=== PATIENT | male | born 1935 | race Caucasian/White ===

== ENCOUNTER 2024-04-22 18:30 | Inpatient (IN) | payer MEDICARE, OTHER ==
[~2024-04-22] VITALS: Ht 172.7 cm; Wt 62.1 kg
[2024-04-22 19:19] LABS: BASOPHILS # (AUTO) 0.1 K/UL (0.0-0.2); BASOPHILS % (AUTO) 0.5 % (0.0-2.0); EOSINOPHILS % (AUTO) 0.2 % (0.0-7.0); HEMATOCRIT 29.2 % (36.7-47.1); HEMOGLOBIN 9.3 g/dL (12.5-16.3); LYMPHOCYTES # (AUTO) 1.3 K/uL (0.8-4.8); MEAN CORPUSCULAR HEMOGLOBIN 28.3 uug (23.8-33.4); MEAN CORPUSCULAR HGB CONC 32 g/dL (32.5-36.3); MEAN CORPUSCULAR VOLUME 88.7 fL (73.0-96.2); MONOCYTES # (AUTO) 0.7 K/uL (0.1-1.30); MONOCYTES % (AUTO) 6.1 % (0.0-11.0); NEUTROPHILS # (AUTO) 9.1 K/uL (1.8-8.9); NEUTROPHILS % (AUTO) 81.2 % (38.5-71.5); PLATELET COUNT (AUTO) 200 K/uL (152-348); RED BLOOD CELL COUNT(AUTO) 3.29 MIL/uL (4.06-5.63); RED CELL DISTRIBUTION WIDTH 13.6 % (12.1-16.2); WHITE BLOOD COUNT (AUTO) 11.2 K/uL (3.6-10.2)
[2024-04-22 19:30] LABS: DIFFERENTIAL COMMENT 1
[2024-04-22 19:33] LABS: CALCIUM 9.1 mg/dL (8.5-10.1); CARBON DIOXIDE 28 mmol/L (21-32); CHLORIDE 110 mmol/L (98-107); CREATININE 1.5 mg/dL (0.6-1.3); GLUCOSE 96 mg/dL (74-106); POTASSIUM 4.6 mmol/L (3.5-5.1); SODIUM SERUM 145 mmol/L (136-145); UREA NITROGEN, BLOOD 59 mg/dL (7-18)
[2024-04-22 19:51] LABS: ALANINE AMINOTRANSFERASE 13 U/L (16-63); ALBUMIN 2.7 g/dL (3.4-5.0); ALKALINE PHOSPHATASE 110 U/L (50-136); ASPARTATE AMINOTRANSFERASE 12 U/L (15-37); BILIRUBIN,TOTAL 0.5 mg/dL (0.2-1.0); NT-PRO BNP 510 pg/mL (0-125); TOTAL PROTEIN, SERUM 6.8 g/dL (6.4-8.2)
[2024-04-22 20:25] LABS: *BILIRUBIN,URIN NEGATIVE (NEGATIVE); *BLOOD, URINE 3+ (NEGATIVE); *CLARITY,URINE CLEAR (CLEAR); *COLOR,URINE DARK YELLOW (YELLOW); *KETONES,URINE NEGATIVE (NEGATIVE); *PROTEIN,URINE 1+ (NEGATIVE); *UROBILINOGEN,URINE 0.2 E.U./dl (NORMAL); LEUKOCYTE ESTERASE ,URINE NEGATIVE (NEGATIVE); NITRITE, URINE NEGATIVE (NEGATIVE); PH,URINE 5.5 (5.0-8.0); UGLUCOSE NEGATIVE (NEGATIVE)
[2024-04-22 20:40] LABS: BACTERIA,URINE FEW /HPF (NONE SEEN); SQUAMOUS EPITHELIAL CELL,UR FEW /HPF (NONE SEEN); WBC,URINE 0-3 /HPF (0-3)
[2024-04-22] MEDS ORDERED: MELA5TAB2 SL (21:10)
[2024-04-22] MEDS ORDERED: QUET100T PO (21:10)
[2024-04-22] MEDS ORDERED: CARB1TAB21 PO (21:10)
[2024-04-22] MEDS ORDERED: OFLO5DRO3 EACHEYE (21:10)
[2024-04-22] MEDS ORDERED: ESCI20TA PO (21:10)
[2024-04-22] MEDS ORDERED: ALPR0.25 PO (21:10)
[2024-04-22] MEDS ORDERED: CARBIDOPA/LEVODOPA 25-100MG TABLET PO STA (21:29)
[2024-04-22] MEDS ORDERED: MELATONIN 3 MG TABLET PO STA (21:29)
[2024-04-22] MEDS ORDERED: QUETIAPINE FUMARATE 25 MG TABLET PO ONE (21:30)
[2024-04-22] MEDS ORDERED: ALPRAZOLAM 0.25 MG TABLET PO ONE ×2 (21:30→23:00)
[2024-04-22] MEDS ORDERED: BISACODYL 10 MG SUPP.RECT RC PRN (23:00)
[2024-04-22] MEDS ORDERED: ACETAMINOPHEN 325 MG TABLET PO PRN (23:00)
[2024-04-22] MEDS ORDERED: MAGNESIUM HYDROXIDE 30 ML LIQUID UDC PO PRN (23:00)
[2024-04-22] MEDS ORDERED: REMEDY ESSENTIAL ZINC PASTE 113 GM TP PRN (23:00)
[2024-04-22] MEDS ORDERED: ONDANSETRON 4 MG/2 ML VIAL IV PRN (23:00)
[2024-04-22 23:31] VITALS: O2SAT 97
[2024-04-23 02:00] VITALS: BP 114/63; TEMP 97.3
[2024-04-23] MEDS: IV NS 1000 ML 1,000 ML IV PRN (02:00)
[2024-04-23 06:48] LABS: BASOPHILS % (AUTO) 0.1 % (0.0-2.0); EOSINOPHILS % (AUTO) 0.1 % (0.0-7.0); HEMOGLOBIN 9.7 g/dL (12.5-16.3); LYMPHOCYTES # (AUTO) 1.1 K/uL (0.8-4.8); LYMPHOCYTES % (AUTO) 11.2 % (20.5-51.5); MEAN CORPUSCULAR HEMOGLOBIN 29.6 uug (23.8-33.4); MEAN CORPUSCULAR HGB CONC 33 g/dL (32.5-36.3); MEAN CORPUSCULAR VOLUME 88.8 fL (73.0-96.2); MONOCYTES # (AUTO) 0.6 K/uL (0.1-1.30); MONOCYTES % (AUTO) 6.1 % (0.0-11.0); NEUTROPHILS # (AUTO) 8.4 K/uL (1.8-8.9); NEUTROPHILS % (AUTO) 82.5 % (38.5-71.5); PLATELET COUNT (AUTO) 190 K/uL (152-348); RED BLOOD CELL COUNT(AUTO) 3.26 MIL/uL (4.06-5.63); RED CELL DISTRIBUTION WIDTH 13.2 % (12.1-16.2); WHITE BLOOD COUNT (AUTO) 10.2 K/uL (3.6-10.2)
[2024-04-23 07:02] LABS: DIFFERENTIAL COMMENT 1
[2024-04-23 07:07] LABS: CALCIUM 8.7 mg/dL (8.5-10.1); CARBON DIOXIDE 26 mmol/L (21-32); CHLORIDE 111 mmol/L (98-107); CREATININE 1.5 mg/dL (0.6-1.3); GLUCOSE 92 mg/dL (74-106); MAGNESIUM 1.9 mg/dL (1.8-2.4); POTASSIUM 4.5 mmol/L (3.5-5.1); SODIUM SERUM 145 mmol/L (136-145); UREA NITROGEN, BLOOD 59 mg/dL (7-18)
[2024-04-23] MEDS: MIRALAX 17 GM POWD.PACK PO SCH (08:13)
[2024-04-23] MEDS: PANTOPRAZOLE SODIUM 40 MG VIAL IV SCH (08:13)
[2024-04-23] MEDS ORDERED: CARBIDOPA/LEVODOPA 25-100MG TABLET PO SCH (09:15)
[2024-04-23] MEDS ORDERED: HOME MED MISCELLANEOUS XX SCH ×2 (09:15)
[2024-04-23] MEDS: IV D5/ 0.9% NACL 1,000 ML IV PRN (09:51)
[2024-04-23] MEDS: BISACODYL 10 MG SUPP.RECT RC ONE (12:09)
[2024-04-23] MEDS ORDERED: ALPRAZOLAM 0.25 MG TABLET PO SCH (17:00)
[2024-04-23] MEDS ORDERED: SENNOSIDES 1 TABLET PO SCH (21:00)
[2024-04-23] MEDS ORDERED: QUETIAPINE FUMARATE 100 MG TABLET PO SCH (21:00)
[2024-04-24] MEDS ORDERED: ESCITALOPRAM OXALATE 10 MG TABLET PO SCH (09:00)
== END 2024-04-23 14:34 | disposition home health service (06) | DRG 377 ==
LOC: EDBD 18:31 → ER 18:31 → TELE3 21:02 → MEDSURG3 04-23 01:30
PROVIDERS: ADMIT Nurse Practitioner Acute Care; ATTEND Nurse Practitioner Acute Care
DX: K92.2 Gastrointestinal hemorrhage, unspecified (principal); N17.0 Acute kidney failure with tubular necrosis; F02.83 Dementia in other diseases classified elsewhere, unspecified severity, with mood disturbance; F02.84 Dementia in other diseases classified elsewhere, unspecified severity, with anxiety; D68.59 Other primary thrombophilia; Z66 Do not resuscitate; G20.A1 Parkinson's disease without dyskinesia, without mention of fluctuations; Z74.01 Bed confinement status; K59.00 Constipation, unspecified; K52.89 Other specified noninfective gastroenteritis and colitis; E78.5 Hyperlipidemia, unspecified; N18.9 Chronic kidney disease, unspecified; I12.9 Hypertensive chronic kidney disease with stage 1 through stage 4 chronic kidney disease, or unspecified chronic kidney disease; R13.10 Dysphagia, unspecified; Z79.899 Other long term (current) drug therapy
CPT/HCPCS: 36415; 71045; 83735; 84100; 84484; 85025; 85610; 85730; 86850; 86900; 86901; A4606; A4663; C1758; G0378; J2470; J7040; J7042